=== PATIENT | female | born 1995 | race Caucasian/White ===

== ENCOUNTER 2017-07-14 17:43 | Emergency (ER) | payer SELFPAY ==
[~2017-07-14] VITALS: Ht 160 cm; Wt 70.3 kg
[2017-07-14] MEDS ORDERED: traMADol HCL 50 MG TAB PO ONE (19:15)
[2017-07-14 19:34] VITALS: BP 128/84
== END 2017-07-14 19:38 | disposition home or self-care (01) ==
LOC: EDBD 17:43 → ER 17:43
DX: S01.01XA Laceration without foreign body of scalp, initial encounter (principal); S09.90XA Unspecified injury of head, initial encounter; W22.8XXA Striking against or struck by other objects, initial encounter; Y93.89 Activity, other specified; Y99.8 Other external cause status; Y92.89 Other specified places as the place of occurrence of the external cause
CPT/HCPCS: 70450